=== PATIENT | male | born 1965 | race Caucasian/White ===

== ENCOUNTER 2017-11-08 10:10 | Observation (INO) ==
[2017-11-08] MEDS ORDERED: 0.9 % Sodium Chloride 1,000 ML IVC ONE ×2 (10:21→13:42)
[2017-11-08] MEDS ORDERED: Ondansetron 4 MG/2 ML VIAL IVP ONE (10:21)
[2017-11-08] MEDS ORDERED: *HR* HYDROmorphone (PF) 1 MG/ML SYRINGE IVP ONE ×2 (10:21→13:55)
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
[2017-11-08 10:55] LABS: Basophils # 0.1 K/mcL (0.0-0.2); Basophils % 0.8 %; Eosinophils # 0.4 K/mcL (0.0-0.6); Eosinophils % 3.7 %; Hematocrit 44.9 % (37.5-50.1); Hemoglobin 14.9 g/dL (12.9-16.9); Immature Granulocytes % 0.5 % (0-4); Lymphocytes # 2.3 K/mcL (0.6-4.6); Lymphocytes % 20.7 %; Mean Corpuscular HGB Conc 33.2 g/dL (31.6-35.5); Mean Corpuscular Hemoglobin 29.3 pg (28.0-33.3); Mean Corpuscular Volume 88.2 fL (83.0-100.0); Mean Platelet Volume 10.6 fL (9.4-12.4); Monocytes # 1.1 K/mcL (0.0-1.3); Monocytes % 9.4 %; Neutrophils # 7.3 K/mcL (1.6-8.9); Platelet Count 337 K/mcL (140-400); Red Blood Count 5.09 M/mcL (4.19-5.50); Red Cell Distribution Width 13.7 % (11.5-14.5); Segmented Neutrophils % 64.9 %
[2017-11-08 11:00] LABS: Prothrombin Time 10.7 Seconds (9.4-12.1)
[2017-11-08 11:03] LABS: Activated Partial Thrombo Time 28.4 Seconds (26.0-36.0)
[2017-11-08 11:10] LABS: Bilirubin,Urine Small (Negative); Blood,Urine Negative (Negative); Clarity,Urine Cloudy (Clear); Color,Urine Dark Yellow (Yellow); Glucose,Urine (UA) Normal (Normal); Ketones,Urine Trace mg/dL (Negative); Leukocyte Esterase,Urine Negative (Negative); Nitrite,Urine Negative (Negative); Protein,Urine 100 mg/dL (Neg-Trace); Specific Gravity,Urine > 1.030 (1.010-1.025); Urobilinogen,Urine Normal (Normal)
[2017-11-08 11:14] LABS: Bacteria,Urine None Seen per hpf (None-Few); RBC,Urine 0-3 per hpf (0-3); Squamous Epithelial Cell,Urine Many per lpf (None-Few)
[2017-11-08 11:17] LABS: Alanine Aminotransferase 19 Units/L (7-52); Albumin 4.2 g/dL (3.5-5.7); Albumin/Globulin Ratio 1.6 (1.1-2.2); Alkaline Phosphatase 92 Units/L (34-104); Aspartate Amino Transferase 17 Units/L (13-39); BUN/Creatinine Ratio 19 (6-26); Bilirubin,Direct 0.1 mg/dL (0.0-0.2); Bilirubin,Indirect 0.5 mg/dL (0.0-1.2); Bilirubin,Total 0.6 mg/dL (0.3-1.0); Blood Urea Nitrogen 18 mg/dL (6-20); Calcium 9.5 mg/dL (8.6-10.3); Carbon Dioxide 28 mEq/L (23-29); Chloride 104 mEq/L (98-107); Globulin 2.7 g/dL (2.4-3.5); Glucose 137 mg/dL (70-105); Lipase 26 Units/L (11-82); Osmolality,Calculated 290 (280-300); Potassium 4.2 mEq/L (3.5-5.1); Sodium 138 mEq/L (136-145); Total Protein 6.9 g/dL (6.4-8.9); eGFR For African Americans > 60 (> 60); eGFR For Non-African Americans > 60 (> 60)
[2017-11-08 11:24] LABS: Granular Casts,Urine Few per lpf (None Seen); Hyaline Casts,Urine Few per lpf (None-Few)
[2017-11-08] MEDS ORDERED: diazePAM 10 MG/2 ML SYRINGE IVP ONE (11:36)
--- NOTE | 2017-11-08 11:41 | Emergency Department Note ---
START Narrative - START START: For this encounter, I have reviewed the C[employer] GR[employer]ER OPERATOR or PA documentation, treatment plan, and medical decision making; and I have had face to face time with this patient. 52 yo M here for ruq pain and spasms ongoing since not worse with food no vomiting or diarrhea pain radiates to right back diaphragm spasms??? will add some valium to see if this helps
[2017-11-08] MEDS ORDERED: *HR* HYDROmorphone 2 MG/ML SYRINGE ONE (13:55)
[2017-11-08] MEDS ORDERED: Ondansetron 4 MG/2 ML VIAL IVP PRN (15:33)
[2017-11-08] MEDS ORDERED: Naloxone 0.4 MG/ML INJ IVP PRN (15:34)
[2017-11-08] MEDS ORDERED: Acetaminophen 325 MG TABLET PO PRN (15:34)
--- NOTE | 2017-11-08 16:10 | Internal Med History&Physical ---
Date of Encounter: 11/08/17 Time of Encounter: 16:00 Assessment and Plan (1) RUQ abdominal pain Current visit: Yes Status: Acute The patient has been doing with abdominal pain for the last 2 days. Given his significant symptoms in the right upper quadrant and the sludge seen on the gallbladder ultrasound, I will put him in for HIDA scan. Continue with pain control IV fluids and antiemetics. Advance diet as tolerated. Prophylactic PPI. (2) D-dimer, elevated Current visit: Yes Status: Acute Etiology is unclear. Negative CTA of chest. He may eventually need a lower extremity Doppler to rule out lower extremity DVT. (3) Depression Current visit: Yes Status: Acute Continue home meds of duloxetine. Qualifiers: Depression Type: major depressive disorder Major depression recurrence: recurrent Active/Remission status: remission status unspecified Qualified Code(s): F33.9 - Major depressive disorder, recurrent, unspecified (4) DVT prophylaxis Current visit: Yes Status: Acute Lovenox Internal Medicine - H&P: HPI Chief complaint: Abdominal pain Admitted From: Home History of present illness: Mr. Dawkins is a 52 year old male history of depression who has been doing with abdominal pain for the last 2 days. It has been constant in the right upper quadrant. He has tried Tylenol and ibuprofen to relieve it but that only minimally relieved his pain. Today the pain was so significant he decided to come in. He says the pain is mostly localized to the right upper quadrant. Worse with inspiration. No relation to food. No nausea or vomiting. No chest pain shortness of breath. No diarrhea or constipation. In the ED he had workup that was mostly unremarkable other than elevated D dimers which a CT of chest was checked and was negative for PE. He had a right upper quadrant ultrasound showed gallbladder sludge. He denies any fever chills nausea vomiting chest pain urinary symptoms or neurological symptoms. CT of abdomen and pelvis was done was negative as well. He received Dilaudid as well as Valium in the ED which somewhat better controlled his pain. Past Med Surg Social Fam HX - Past Medical History Medical history: other Psychiatric history: anxiety - Past Surgical History Surgical History: hip replacement, orthopedic, other - Social History Smoking Status: Never smoker Smokeless Tobacco Status: No Alcohol use: none Drug use: none Internal Medicine - H&P: Meds Duloxetine HCl [Cymbalta] 60 mg PO DAILY 11/08/17 [History] 3 Allergy/AdvReac Type Severity Reaction Status Date / Time acetaminophen [From Percocet] Allergy Anaphylaxis Verified 11/08/17 14:09 Oxycodone [From Percocet] Allergy Anaphylaxis Verified 11/08/17 14:09 All Systems PM: A 10-system review of systems was performed and is negative for pertinent findings except as documented above in the HPI. - Constitutional Vitals: Temp Pulse Resp BP Pulse Ox 98.3 F 112 18 113/91 93 11/08/17 10:17 11/08/17 12:55 11/08/17 14:14 11/08/17 14:14 11/08/17 12:55 Exam: GEN: NAD HEENT: AT, NC, No cyanosis, oral mucosa is moist, No JVD Lymphatics: No lymphadenoapthy Eyes: Extrocular muscles intact, anicteric CVS:RRR. S1, S2, No m/r/g RESP: CTAB ABD: Soft, obese, significant right upper quadrant tenderness on inspiration mainly., ND, +BS EXT: No edema, No rashes, 2+ DP NEURO: Nonfocal, CN II-XII intact, No focal motor or sensory deficits Psych: Cooperative, Not anxious or depressedl Internal Med - H&P Results - Labs CBC & Chem 7: 11/08/17 10:31 11/08/17 10:31 Labs: Cardiac Enzymes 11/08/17 Range/Units 15:25 Troponin I < 0.03 (< 0.04) ng/mL - Impressions ITS Impressions Gallbladder Ultrasound 11/08/17 14:39 IMPRESSION: Gallbladder sludge without evidence of cholelithiasis or cholecystitis. Possible hepatic steatosis. D/ / Hiram Duenas MD / Hiram Duenas MD Interpreting Provider: Hiram Duenas MD Chest CTA 11/08/17 14:52 IMPRESSION: No evidence of pulmonary embolism or acute pulmonary abnormality. D/ / Avi Boyd MD / Avi Boyd MD Interpreting Provider: Avi Boyd MD
[2017-11-08] MEDS: 0.9 % Sodium Chloride 1,000 ML IVC SCH (17:55)
[2017-11-08] MEDS: Pantoprazole 40 MG VIAL IVP SCH (17:55)
[2017-11-08] MEDS: *HR* HYDROmorphone (PF) 1 MG/ML SYRINGE IVP PRN (20:51)
[2017-11-09] MEDS: *HR* HYDROmorphone (PF) 1 MG/ML SYRINGE IVP PRN ×4 (03:56→20:40)
[2017-11-09 04:48] LABS: Basophils # 0.1 K/mcL (0.0-0.2); Basophils % 0.6 %; Eosinophils # 0.2 K/mcL (0.0-0.6); Eosinophils % 1.3 %; Hematocrit 39.1 % (37.5-50.1); Immature Granulocytes % 0.3 % (0-4); Lymphocytes # 1.7 K/mcL (0.6-4.6); Lymphocytes % 13.9 %; Mean Corpuscular HGB Conc 31.7 g/dL (31.6-35.5); Mean Corpuscular Hemoglobin 28.4 pg (28.0-33.3); Mean Corpuscular Volume 89.5 fL (83.0-100.0); Mean Platelet Volume 10.6 fL (9.4-12.4); Monocytes # 1.2 K/mcL (0.0-1.3); Monocytes % 10.2 %; Neutrophils # 8.8 K/mcL (1.6-8.9); Platelet Count 254 K/mcL (140-400); Red Blood Count 4.37 M/mcL (4.19-5.50); Red Cell Distribution Width 13.9 % (11.5-14.5); Segmented Neutrophils % 73.7 %
[2017-11-09 04:54] LABS: Hemoglobin 12.4 g/dL (12.9-16.9)
[2017-11-09 04:57] LABS: BUN/Creatinine Ratio 20 (6-26); Blood Urea Nitrogen 14 mg/dL (6-20); Calcium 8.6 mg/dL (8.6-10.3); Carbon Dioxide 30 mEq/L (23-29); Chloride 104 mEq/L (98-107); Glucose 126 mg/dL (70-105); Osmolality,Calculated 286 (280-300); Sodium 137 mEq/L (136-145); eGFR For African Americans > 60 (> 60); eGFR For Non-African Americans > 60 (> 60)
[2017-11-09] MEDS: *HR* Enoxaparin 40 MG/0.4 ML SYRINGE SQ SCH (05:40)
[2017-11-09] MEDS ORDERED: diazePAM 10 MG/2 ML SYRINGE IVP STA (09:50)
--- NOTE | 2017-11-09 11:47 | Internal Med Progress Note ---
Date of Encounter: 11/09/17 Time of Encounter: 08:00 - Assessment and plan (1) RUQ abdominal pain Current Visit: Yes Status: Acute Assessment and plan: Went for HIDA but was claustrophobic. We will try again with a HIDA scan after giving him some Valium. I did explain to the patient that I do not have an etiology to his pain and the only thing that would tell me more is the HIDA scan. He is willing to try again if he is sedated. His lactic acid was normal on admission so it is unlikely to be ischemic cause. He had a mildly elevated WBC count but that is very mild and possibly reactive. Continue with pain control after the HIDA scan. Continue with IV fluids. Continue with with antiemetics. Continue IV PPI. Advance diet as tolerated. He may need to be seen by surgery if he continues to have abdominal pain and if his HIDA scan comes back abnormal. (2) D-dimer, elevated Current Visit: Yes Status: Acute Assessment and plan: Negative for PE. Eventually he may need a lower extremity Doppler. (3) Depression Current Visit: Yes Status: Acute Assessment and plan: Continue with the fluoxetine. Qualifiers: Depression Type: major depressive disorder Major depression recurrence: recurrent Active/Remission status: remission status unspecified Qualified Code(s): F33.9 - Major depressive disorder, recurrent, unspecified (4) DVT prophylaxis Current Visit: Yes Status: Acute Assessment and plan: lovenox - Subjective Interval history: Patient could not tolerate HIDA scan this morning. He tells me he is claustrophobic. He is sitting at the side of the bed and significant abdominal pain. He has not received any pain meds as he was anticipating a HIDA scan this morning. Has been afebrile. - Constitutional Vitals: Temp Pulse Resp BP Pulse Ox 97.5 F L 99 18 156/98 97 11/09/17 07:04 11/09/17 07:04 11/09/17 07:04 11/09/17 07:04 11/09/17 07:04 Exam: GEN: NAD CVS: RRR. S1, S2, No m/r/g RESP: CTAB ABD: Soft, significant right upper quadrant tenderness., ND, +BS EXT: No edema. 2+ DP. No rashes NEURO: Nonfocal Internal Medicine: Result - Labs CBC & Chem 7: 11/09/17 03:53 11/09/17 03:53 Labs: Short CBC 11/09/17 Range/Units 03:53 WBC 12.0 H (4.3-11.1) K/mcL Hgb 12.4 L D (12.9-16.9) g/dL Hct 39.1 (37.5-50.1) % Plt Count 254 (140-400) K/mcL Neutrophils # 8.8 (1.6-8.9) K/mcL BMP 11/09/17 03:53 Sodium 137 Potassium 4.0 Chloride 104 Carbon Dioxide 30 H BUN 14 Creatinine 0.71 Glucose 126 H Calcium 8.6 Cardiac Enzymes 11/08/17 Range/Units 15:25 Troponin I < 0.03 (< 0.04) ng/mL - ABG Interpretation ABG results: PT/INR, D-dimer PT 10.7 Seconds (9.4-12.1) 11/08/17 10:31 D-Dimer 719 ng/mLFEU (0-500) H 11/08/17 10:31 - Impressions Impressions Gallbladder Ultrasound 11/08/17 14:39 IMPRESSION: Gallbladder sludge without evidence of cholelithiasis or cholecystitis. Possible hepatic steatosis. D/ / Hiram Duenas MD / Hiram Duenas MD Interpreting Provider: Hiram Duenas MD Chest CTA 11/08/17 14:52 IMPRESSION: No evidence of pulmonary embolism or acute pulmonary abnormality. D/ / Avi Boyd MD / Avi Boyd MD Interpreting Provider: Avi Boyd MD Consult Discharge Plan - Plan Referrals: Bk Cuevas Jr, MD [Primary Care Provider] -
[2017-11-09] MEDS: Pantoprazole 40 MG VIAL IVP SCH (14:39)
[2017-11-09] MEDS ORDERED: *HR* HYDROmorphone (PF) 1 MG/ML SYRINGE IVP PRN (17:00)
[2017-11-09] MEDS: 0.9 % Sodium Chloride 1,000 ML IVC SCH (19:05)
[2017-11-10] MEDS: *HR* HYDROmorphone (PF) 1 MG/ML SYRINGE IVP PRN ×4 (00:12→10:36)
[2017-11-10 04:15] LABS: Basophils # 0.1 K/mcL (0.0-0.2); Basophils % 0.5 %; Eosinophils # 0.1 K/mcL (0.0-0.6); Hematocrit 40.7 % (37.5-50.1); Hemoglobin 13.2 g/dL (12.9-16.9); Immature Granulocytes % 0.3 % (0-4); Lymphocytes # 2.3 K/mcL (0.6-4.6); Mean Corpuscular HGB Conc 32.4 g/dL (31.6-35.5); Mean Corpuscular Hemoglobin 29.1 pg (28.0-33.3); Mean Corpuscular Volume 89.6 fL (83.0-100.0); Mean Platelet Volume 10.2 fL (9.4-12.4); Monocytes # 1.3 K/mcL (0.0-1.3); Monocytes % 10.7 %; Neutrophils # 8.2 K/mcL (1.6-8.9); Platelet Count 309 K/mcL (140-400); Red Blood Count 4.54 M/mcL (4.19-5.50); Red Cell Distribution Width 13.5 % (11.5-14.5); Segmented Neutrophils % 68.5 %
[2017-11-10 04:30] LABS: Alanine Aminotransferase 16 Units/L (7-52); Albumin 4.2 g/dL (3.5-5.7); Albumin/Globulin Ratio 1.5 (1.1-2.2); Alkaline Phosphatase 88 Units/L (34-104); Aspartate Amino Transferase 15 Units/L (13-39); BUN/Creatinine Ratio 17 (6-26); Blood Urea Nitrogen 14 mg/dL (6-20); Calcium 9.1 mg/dL (8.6-10.3); Carbon Dioxide 29 mEq/L (23-29); Chloride 100 mEq/L (98-107); Globulin 2.8 g/dL (2.4-3.5); Glucose 118 mg/dL (70-105); Osmolality,Calculated 284 (280-300); Sodium 136 mEq/L (136-145); eGFR For African Americans > 60 (> 60); eGFR For Non-African Americans > 60 (> 60)
[2017-11-10] MEDS: *HR* Enoxaparin 40 MG/0.4 ML SYRINGE SQ SCH (06:46)
[2017-11-10] MEDS: Pantoprazole 40 MG VIAL IVP SCH (09:16)
[2017-11-10] MEDS: *HR* HYDROcodone/Acet 5/325 mg TABLET PO PRN ×2 (09:19→14:27)
[2017-11-10] MEDS ORDERED: 0.9 % Sodium Chloride 500 ML IVC ONE (09:55)
--- NOTE | 2017-11-10 10:38 | Internal Med Progress Note ---
Date of Encounter: 11/10/17 Time of Encounter: 09:30 - Assessment and plan (1) RUQ abdominal pain Current Visit: Yes Status: Acute Assessment and plan: HIDA was normal. CT abdomen and pelvis was normal. We will check a CT angiogram of the abdomen and pelvis without mesenteric ischemia although I have low suspicions given the normal lactic acid. This was normal. Liver function test is normal. I still do not have a clear etiology of his pain. If his workup remains negative I am going to discharge the patient with follow-up with his primary care physician. He may benefit from a GI referral. Continue with pain control for now. (2) D-dimer, elevated Current Visit: Yes Status: Acute Assessment and plan: Negative for PE. Check a CTA of abdomen and pelvis. Check lower extremities venous Doppler. (3) Depression Current Visit: Yes Status: Acute Assessment and plan: Continue with the fluoxetine. Qualifiers: Depression Type: major depressive disorder Major depression recurrence: recurrent Active/Remission status: remission status unspecified Qualified Code(s): F33.9 - Major depressive disorder, recurrent, unspecified (4) DVT prophylaxis Current Visit: Yes Status: Acute Assessment and plan: lovenox - Subjective Interval history: He continues to complain of abdominal pain mostly on the right upper quadrant. He had his HIDA scan done yesterday. He is tolerating diet. Has been afebrile. - Constitutional Vitals: Temp Pulse Resp BP Pulse Ox 99.3 F 98 16 127/81 97 11/10/17 07:16 11/10/17 07:16 11/10/17 07:16 11/10/17 07:16 11/10/17 07:16 Exam: GEN: NAD CVS: RRR. S1, S2, No m/r/g RESP: CTAB ABD: Soft, significant right upper quadrant tenderness., ND, +BS EXT: No edema. 2+ DP. No rashes NEURO: Nonfocal Internal Medicine: Result - Labs CBC & Chem 7: 11/10/17 04:01 11/10/17 04:01 Labs: Short CBC 11/10/17 Range/Units 04:01 WBC 11.9 H (4.3-11.1) K/mcL Hgb 13.2 (12.9-16.9) g/dL Hct 40.7 (37.5-50.1) % Plt Count 309 (140-400) K/mcL Neutrophils # 8.2 (1.6-8.9) K/mcL BMP 11/10/17 04:01 Sodium 136 Potassium 4.0 Chloride 100 Carbon Dioxide 29 BUN 14 Creatinine 0.81 Glucose 118 H Calcium 9.1 Liver Function 11/10/17 Range/Units 04:01 Total Bilirubin 1.0 (0.3-1.0) mg/dL AST 15 (13-39) Units/L ALT 16 (7-52) Units/L Alkaline Phosphatase 88 (34-104) Units/L Albumin 4.2 (3.5-5.7) g/dL - ABG Interpretation ABG results: PT/INR, D-dimer PT 10.7 Seconds (9.4-12.1) 11/08/17 10:31 D-Dimer 719 ng/mLFEU (0-500) H 11/08/17 10:31 - Impressions Impressions Liver Scan Nuclear Medicine 11/08/17 16:01 IMPRESSION: No convincing scintigraphic evidence of acute or chronic cholecystitis. D/ / Atul Rose MD / Atul Rose MD Interpreting Provider: Atul Rose MD Abdomen/Pelvis CTA 11/10/17 07:48 IMPRESSION: No acute abnormality. Chronic L5-S1 spondylolisthesis. Diffuse hepatic steatosis. D/ / 11/10/2017 08:45:41 Atul Rose MD / reyna Interpreting Provider: Atul Rose MD Consult Discharge Plan - Plan Referrals: Bk Cuevas Jr, MD [Primary Care Provider] -
[2017-11-10 11:08] VITALS: BP 123/79
--- NOTE | 2017-11-10 13:05 | Discharge Summary ---
Date of Encounter: 11/10/17 Time of Encounter: 10:00 - Discharge Diagnosis (1) RUQ abdominal pain Priority: Primary Status: Acute (2) D-dimer, elevated Priority: Primary Status: Acute (3) Depression Priority: Secondary Status: Acute Qualifiers: Depression Type: major depressive disorder Major depression recurrence: recurrent Active/Remission status: remission status unspecified Qualified Code(s): F33.9 - Major depressive disorder, recurrent, unspecified - Discharge Medications Prescriptions: HYDROcodone/Acet 5/325 mg [[place] 5-325 mg] 1 tab PO Q6HR PRN #8 tablet PRN Reason: Pain Home Medications: Duloxetine HCl [Cymbalta] 60 mg PO DAILY 11/08/17 [History] HYDROcodone/Acet 5/325 mg [[place] 5-325 mg] 1 tab PO Q6HR PRN #8 tablet 11/10/17 [Rx] Allergies/Adverse Reactions: 3 Allergy/AdvReac Type Severity Reaction Status Date / Time acetaminophen [From Percocet] Allergy Anaphylaxis Verified 11/08/17 14:09 Oxycodone [From Percocet] Allergy Anaphylaxis Verified 11/08/17 14:09 Procedures/tests Complete & Pending: Procedures Performed prior 72 hours Category Date Time Status CTA Abdomen/Pelvis [CT angio abdomen pelvis] [CT] Stat Cat Scan 11/10/17 07: 48 Draft CTA chest [CT angio chest] [CT] Stat Cat Scan 11/08/17 14:52 Completed NM hepatobiliary w drug [NM] Stat Exams 11/08/17 16:01 Completed US gall bladder [US] Stat Exams 11/08/17 14:39 Completed EV venous imaging LE BI Stat Y 11/10/17 07:50 Ordered Date of admission: 11/08/17 13:47 Primary care physician: Bk Cuevas Jr, MD - Patient Status Disposition: Home, Self-Care Condition: Fair Overall status at discharge: patient is progressing back to baseline - Discharge Instructions Follow Up With: Bk Cuevas Jr, MD [Primary Care Provider] - Hospital course: Mr. Dawkins is a 52 year old male history of depression who has been dealing with abdominal pain for the last 2 days prior to admission. It has been constant in the right upper quadrant. He has tried Tylenol and ibuprofen to relieve it but that only minimally relieved his pain. On day of admission, the pain was so significant he decided to come in. In the ED he had workup that was mostly unremarkable other than elevated D dimers which a CTA of chest was checked and was negative for PE. Lower extremity Dopplers were negative as well. He had a right upper quadrant ultrasound showed gallbladder sludge. A CT abdomen and pelvis without contrast showed no acute process. He was admitted to the hospitalist service for tractable abdominal pain. The put him on some IV pain meds, IV antiemetics, and IV fluids. He continued to complain of abdominal pain for which a HIDA scan was ordered and came back unremarkable. I suspected, although low suspicion, mesenteric ischemia and ended up ordering a CTA of abdomen and pelvis which came back unremarkable. He was tolerating diet on 11/10. His pain was still somewhat there. I have given patient a prescription for Percocet total 8 pills and discharged him home as I had no reason to keep him in the hospital. He is to follow-up with his primary care physician I recommend that he be referred to a insights strategist if he continues to have pain. - Time Spent with Patient Total time spent providing and/or coordinating discharge services: Greater than 30 minutes - Constitutional Vitals: Temp Pulse Resp BP Pulse Ox 98.6 F 108 16 123/79 96 11/10/17 11:07 11/10/17 11:07 11/10/17 11:07 11/10/17 11:07 11/10/17 11:07 Exam: GEN: NAD CVS: RRR. S1, S2, No m/r/g RESP: CTAB ABD: Soft, significant right upper quadrant tenderness., ND, +BS EXT: No edema. 2+ DP. No rashes NEURO: Nonfocal
== END 2017-11-10 14:34 | disposition home or self-care (01) ==
LOC: EMEROO 10:10 → 3ANU 10:10
PROVIDERS: ADMIT Internal Medicine Nephrology; ATTEND Internal Medicine